=== PATIENT | female | born 1990 | race Caucasian/White ===

== ENCOUNTER 2017-07-31 05:33 | Inpatient (IN) | payer BC, MEDICAID ==
[~2017-07-31] VITALS: Ht 175.3 cm; Wt 108.9 kg
[2017-07-31] MEDS: LR 1,000 ML IV SCH
[2017-07-31] MEDS ORDERED: LR 1,000 ML IV ONE (06:01)
[2017-07-31] MEDS ORDERED: CEFAZOLIN 2 GM IVPB PREMIX 50 ML IV ONE (06:15)
[2017-07-31 06:32] VITALS: BP_SYST 122
[2017-07-31 06:45] LABS: BASOPHILS % (AUTO) 0.5 % (0.0-2.0); EOSINOPHILS # (AUTO) 0.1 K/uL (0.0-0.4); EOSINOPHILS % (AUTO) 1.4 % (0.0-4.0); HEMATOCRIT 34.8 % (36-48); HEMOGLOBIN 11.7 g/dL (12.0-16.0); LYMPHOCYTES # (AUTO) 2.4 K/uL (1.0-5.5); LYMPHOCYTES % (AUTO) 32.7 % (20.5-51.5); MEAN CORPUSCULAR HEMOGLOBIN 29 pg (27-31); MEAN CORPUSCULAR HGB CONC 34 % (32-36); MEAN CORPUSCULAR VOLUME 87 fL (79.0-98.0); MONOCYTES # (AUTO) 0.4 K/uL (0.0-1.0); NEUTROPHILS # (AUTO) 4.5 K/uL (1.8-7.7); NEUTROPHILS % (AUTO) 59.4 % (40.0-70.0); PLATELET COUNT (AUTO) 198 K/uL (130-430); RED BLOOD CELL COUNT(AUTO) 3.98 MIL/uL (4.2-6.2); RED CELL DISTRIBUTION WIDTH 13.7 % (9.0-15.0); WHITE BLOOD COUNT (AUTO) 7.4 K/uL (4.8-10.8)
[2017-07-31 07:10] LABS: BILIRUBIN,URINE NEGATIVE (NEGATIVE); BLOOD, URINE NEGATIVE (NEGATIVE); CLARITY/URINE SL HAZY (CLEAR); COLOR,URINE YELLOW (YELLOW); GLUCOSE,URINE NEGATIVE (NEGATIVE); KETONES,URINE NEGATIVE (NEGATIVE); LEUKOCYTE ESTERASE ,URINE NEGATIVE (NEGATIVE); NITRITE, URINE NEGATIVE (NEGATIVE); PROTEIN URINE NEGATIVE (NEGATIVE)
[2017-07-31] MEDS ORDERED: MIDAZOLAM HCL 5 MG/5 ML VIAL IVP ONE (07:40)
[2017-07-31] MEDS ORDERED: LR 1,000 ML IV.SOLN IV ONE (07:40)
[2017-07-31] MEDS ORDERED: MORPHINE SULFATE 10MG/10ML PF AMP EP ONE (07:40)
[2017-07-31] MEDS ORDERED: BUPIVACAINE /EPINEPHRINE/PF 0.25% 30 ML VIAL INJ ONE (07:40)
[2017-07-31] MEDS ORDERED: SEVOFLURANE 15 MIN GAS INH ONE (07:40)
[2017-07-31] MEDS ORDERED: NS IRRIG SOLN 1000 ML IR ONE (07:40)
[2017-07-31] MEDS ORDERED: KETOROLAC TROMETHAMINE 30 MG VIAL IVP PRN (08:45)
[2017-07-31] MEDS ORDERED: fentaNYL CITRATE/PF 100 MCG/2 ML AMP IVP PRN ×2 (08:45)
[2017-07-31] MEDS ORDERED: MORPHINE SULFATE 10MG/10ML PF AMP SP SCH (08:45)
[2017-07-31] MEDS ORDERED: NALOXONE HCL 0.4 MG/ML AMP (NARCAN) IVP PRN ×2 (08:45)
[2017-07-31] MEDS ORDERED: ONDANSETRON HCL 4 MG/2 ML VIAL IVP PRN ×2 (08:45)
[2017-07-31] MEDS ORDERED: NALBUPHINE HCL 10 MG/ML AMP IVP PRN (08:45)
[2017-07-31] MEDS ORDERED: KETOROLAC TROMETHAMINE 60 MG/2 ML VIAL IM PRN (08:45)
[2017-07-31 08:56] VITALS: BP_SYST 114
[2017-07-31] MEDS ORDERED: OXYTOCIN/NORMAL SALINE 1,000 ML IV ONE ×2 (09:13→09:40)
[2017-07-31] MEDS ORDERED: ANUSOL 1 EA SUPP.RECT (PREPARATION H) RC PRN (09:45)
[2017-07-31] MEDS ORDERED: HYDROcodone/ACETAMIN 5-325 MG TAB (NORCO/ VICODIN) PO PRN (09:45)
[2017-07-31] MEDS ORDERED: BISACODYL 10 MG/SUPPOSITORY RC PRN (09:45)
[2017-07-31] MEDS ORDERED: SENNOSIDES/DOCUSATE SODIUM 1 TAB TABLET(SENOKOT-S) PO PRN (09:45)
[2017-07-31] MEDS ORDERED: OXYCODONE/ACETAMINOPHEN 5-325 TABLET PO PRN (09:45)
[2017-07-31] MEDS ORDERED: LANOLIN 7 GM OINT. TP PRN (09:45)
[2017-07-31] MEDS: DIPHENHYDRAMINE INJ 50 MG/ML VIAL IVP PRN ×2 (13:31→20:46)
[2017-07-31] MEDS: CEFAZOLIN 1 GM IVPB PREMIX 50 ML IV SCH ×2 (13:39→20:00)
[2017-07-31] MEDS: KETOROLAC TROMETHAMINE 30 MG VIAL IVP SCH ×2 (18:07→23:59)
[2017-07-31] MEDS ORDERED: TEMAZEPAM 15 MG CAPSULE PO PRN (21:00)
[2017-08-01] MEDS: CEFAZOLIN 1 GM IVPB PREMIX 50 ML IV SCH (02:00)
[2017-08-01] MEDS: KETOROLAC TROMETHAMINE 30 MG VIAL IVP SCH (06:24)
[2017-08-01] MEDS: LR 1,000 ML IV SCH (06:25)
[2017-08-01 07:09] LABS: BASOPHILS % (AUTO) 0.3 % (0.0-2.0); EOSINOPHILS # (AUTO) 0.1 K/uL (0.0-0.4); EOSINOPHILS % (AUTO) 1.4 % (0.0-4.0); HEMOGLOBIN 8.9 g/dL (12.0-16.0); LYMPHOCYTES % (AUTO) 24.3 % (20.5-51.5); MEAN CORPUSCULAR HEMOGLOBIN 28 pg (27-31); MEAN CORPUSCULAR HGB CONC 32 % (32-36); MEAN CORPUSCULAR VOLUME 88 fL (79.0-98.0); MONOCYTES # (AUTO) 0.5 K/uL (0.0-1.0); NEUTROPHILS # (AUTO) 5.7 K/uL (1.8-7.7); PLATELET COUNT (AUTO) 186 K/uL (130-430); RED BLOOD CELL COUNT(AUTO) 3.19 MIL/uL (4.2-6.2); RED CELL DISTRIBUTION WIDTH 13.7 % (9.0-15.0); WHITE BLOOD COUNT (AUTO) 8.3 K/uL (4.8-10.8)
[2017-08-01] MEDS: OXYCODONE/ACETAMINOPHEN 5-325 TABLET PO PRN ×4 (08:36→21:11)
[2017-08-01] MEDS: SIMETHICONE 80 MG TAB.CHEW PO PRN ×2 (08:36→13:31)
[2017-08-01] MEDS: IBUPROFEN 600 MG TABLET PO SCH ×3 (12:24→23:45)
[2017-08-01] MEDS: DOCUSATE SODIUM 100 MG CAPSULE PO PRN (13:31)
[2017-08-02] MEDS: IBUPROFEN 600 MG TABLET PO SCH ×2 (06:00→12:51)
[2017-08-02] MEDS: OXYCODONE/ACETAMINOPHEN 5-325 TABLET PO PRN (09:17)
[2017-08-02] MEDS: SIMETHICONE 80 MG TAB.CHEW PO PRN (12:45)
[2017-08-02] MEDS: DOCUSATE SODIUM 100 MG CAPSULE PO PRN (12:45)
== END 2017-08-02 15:40 | disposition home or self-care (01) | DRG 765 ==
LOC: SPU 05:33
PROVIDERS: ADMIT Specialist; ATTEND Specialist
PROC: 10D00Z1 Extraction of Products of Conception, Low, Open Approach (ICD-10-PCS; principal; 2017-07-31 07:30)
DX: O34.211 Maternal care for low transverse scar from previous cesarean delivery (principal); R71.0 Precipitous drop in hematocrit; Z37.0 Single live birth; Z3A.38 38 weeks gestation of pregnancy
CPT/HCPCS: 36415; 81003; 85025; 86592; 86886; 86900; 86901; 94760; J0690; J1200; J1885; J2250; J2274; J2590; J3490; J7120